=== PATIENT | female | born 1990 | race African-American/Black ===

== ENCOUNTER 2016-12-22 10:47 | Observation (INO) | payer OTHER, MEDICAID ==
[~2016-12-22] VITALS: Ht 160 cm; Wt 61.7 kg
[2016-12-22] MEDS ORDERED: PREN1TAB78 PO (11:24)
== END 2016-12-22 11:50 | disposition home or self-care (01) ==
LOC: L&D 10:47
PROVIDERS: ADMIT Obstetrics & Gynecology; ATTEND Obstetrics & Gynecology
DX: O26.893 Other specified pregnancy related conditions, third trimester (principal); R10.9 Unspecified abdominal pain; Z3A.33 33 weeks gestation of pregnancy
CPT/HCPCS: 99281; G0378

== ENCOUNTER 2016-12-22 12:54 | Emergency (ER) | payer OTHER, MEDICAID ==
[~2016-12-22 12:54] MED LIST: PREN1TAB78 PO
== END 2016-12-22 16:13 | disposition left against medical advice (07) ==
LOC: ER 14:17
DX: Z53.21 Procedure and treatment not carried out due to patient leaving prior to being seen by health care provider (principal)